=== PATIENT | male | born 1945 ===

== ENCOUNTER → 2019-05-16 | Outpatient (REF) | payer MEDICARE ==
[2019-05-19 14:42] LABS: VITAMIN D 1,25 DIHYDROXY 52.2 pg/mL (19.9-79.3)
== END ==
LOC: M LAB REF 17:16
PROVIDERS: ATTEND Internal Medicine Nephrology
DX: E83.52 Hypercalcemia (principal)

== ENCOUNTER → 2019-06-09 | Outpatient (REF) | payer OTHER, MEDICARE | LOC: M LAB REF 13:35 | PROVIDERS: ATTEND Internal Medicine Nephrology | DX: E83.52 Hypercalcemia (principal) ==